=== PATIENT | male | born 1950 | race Caucasian/White ===

== ENCOUNTER 2017-03-24 22:16 | Emergency (ER) | payer OTHER ==
[~2017-03-24] VITALS: Ht 177.8 cm; Wt 106.6 kg
--- NOTE | ~2017-03-24 | EKG ---
[address] [address] ELECTROCARDIOGRAM REPORT Name: AUDIE MYERS [id number] Admission: 03/24/17 Attend Phys: Discharge: 03/25/17 Date of : 52 Report #: [id number] THIS REPORT FOR: //name// [facility] ED Test Date: 2017-03-24 Test Time: 22:36:01 Pat Name: AUDIE MYERS Department: Room: Gender: M Senior Copywriter: NICKY : 1950 Requested By: Shelton Faulkner Order Number: [id number] MD: Nickolas Rios Measurements Intervals [place] Rate: 83 P: 27 [place]: 146 QRS: -6 QRSD: 105 T: 43 QT: 390 QTc: 459 Interpretive Statements Sinus rhythm No significant abnormality No previous ECG available for comparison Electronically Signed On 03-25-2017 17:11:49 CDT by Nickolas Rios [email or web address] <ELECTRONICALLY SIGNED> By: Nickolas Rios MD, [facility] 03/25/17 1711 2236 2236 Nickolas Rios MD, FACC /EPI
[2017-03-24] MEDS ORDERED: NORVASC5 MG PO (22:24)
[2017-03-24] MEDS ORDERED: LOSARTAN POTAS100 MG PO (22:24)
[2017-03-24] MEDS ORDERED: METOPROLOL SUCC50 MG PO (22:24)
[2017-03-24] MEDS ORDERED: HYDROCHLOROTHIA50 MG PO (22:24)
[2017-03-24 22:48] LABS: ABSOLUTE NEUTROPHILS 5.3 thou/uL (1.4-8.2); BASOPHILS 1.2 % (0.0-2.0); EOSINOPHILS 2.4 % (0.0-3.0); HEMATOCRIT 40.6 % (42.0-52.0); HEMOGLOBIN 13.7 gm/dL (14.0-18.0); LYMPHOCYTES 22.9 % (24.0-44.0); MCH 29.3 pg (26.0-34.0); MCHC 33.7 g/dL (28.0-37.0); MONOCYTES 11.1 % (1.0-8.0); PLATELET COUNT 294 thou/uL (150-400); POLYS 62.4 % (36.0-66.0); RBC 4.66 mil/uL (4.50-6.00); RDW 13.4 % (10.5-14.5); WBC 8.5 thou/uL (4.0-11.0)
[2017-03-24 22:49] LABS: MANUAL DIFF NO
[2017-03-24 22:53] LABS: CALCIUM 8.7 mg/dL (8.5-10.1); CREATININE 1.4 mg/dL (0.7-1.3); POTASSIUM 3.3 mmol/L (3.5-5.1)
[2017-03-24] MEDS ORDERED: GLYBURIDE 2.52.5 MG PO (22:56)
[2017-03-25 00:21] VITALS: BP 130/76
== END 2017-03-25 00:22 | disposition home or self-care (01) ==
LOC: ER 22:16
PROVIDERS: Nurse Practitioner
DX: E86.0 Dehydration (principal); T67.5XXA Heat exhaustion, unspecified, initial encounter; F32.9 Major depressive disorder, single episode, unspecified; E11.9 Type 2 diabetes mellitus without complications; I10 Essential (primary) hypertension; H35.30 Unspecified macular degeneration; Z79.4 Long term (current) use of insulin; X58.XXXA Exposure to other specified factors, initial encounter; Y93.89 Activity, other specified; Y92.098 Other place in other non-institutional residence as the place of occurrence of the external cause; Y99.8 Other external cause status

== ENCOUNTER 2018-09-21 11:03 | Emergency (ER) | payer OTHER ==
[~2018-09-21] VITALS: Ht 177.8 cm; Wt 106.6 kg
[~2018-09-21 11:03] MED LIST: GLYBURIDE 2.52.5 MG PO; HYDROCHLOROTHIA50 MG PO; LOSARTAN POTAS100 MG PO; METOPROLOL SUCC50 MG PO; NORVASC5 MG PO
[2018-09-21 11:37] LABS: URINE BILIRUBIN NEGATIVE (Negative); URINE BLOOD NEGATIVE (Negative); URINE CLARITY CLEAR; URINE COLOR YELLOW; URINE GLUCOSE-RANDOM* NEGATIVE (Negative); URINE KETONES NEGATIVE (Negative); URINE LEUKOCYTES-REFLEX NEGATIVE (Negative); URINE NITRITE-REFLEX NEGATIVE (Negative); URINE PROTEIN (DIPSTICK) NEGATIVE (Negative); URINE UROBILINOGEN 0.2 E.U./dl (0.2-1.0)
[2018-09-21] MEDS ORDERED: VITAMIN B125000 MCG PO (11:39)
[2018-09-21] MEDS ORDERED: ASPIR 8181 MG PO (11:40)
[2018-09-21] MEDS ORDERED: UNICOMPLEX M TA1 TA1 PO (11:41)
[2018-09-21] MEDS ORDERED: CALCIUM 600 +1 EAC1 PO (11:41)
[2018-09-21] MEDS ORDERED: FLOMAX0.4 MG PO (11:44)
[2018-09-21 12:16] LABS: ABSOLUTE NEUTROPHILS 7.3 thou/uL (1.4-8.2); BASOPHILS 0.8 % (0.0-2.0); EOSINOPHILS 1.2 % (0.0-3.0); HEMATOCRIT 40.3 % (42.0-52.0); HEMOGLOBIN 13.6 gm/dL (14.0-18.0); LYMPHOCYTES 11.8 % (24.0-44.0); MCH 29.4 pg (26.0-34.0); MCHC 33.8 g/dL (28.0-37.0); MCV 86.9 fL (80.0-100.0); MONOCYTES 8.1 % (1.0-8.0); PLATELET COUNT 267 thou/uL (150-400); POLYS 78.1 % (36.0-66.0); RBC 4.63 mil/uL (4.50-6.00); RDW 13.9 % (10.5-14.5); WBC 9.3 thou/uL (4.0-11.0)
[2018-09-21 12:20] LABS: ANION GAP 9 mmol/L (7-16); BUN 21 mg/dL (7-18); CALCIUM 9.1 mg/dL (8.5-10.1); CHLORIDE 99 mmol/L (98-107); CO2 28 mmol/L (21-32); CREATININE 1.2 mg/dL (0.7-1.3); GLUCOSE 125 mg/dL (74-106); SODIUM 136 mmol/L (136-145)
[2018-09-21 12:29] LABS: ALBUMIN 3.3 g/dL (3.4-5.0); LIPASE 121 U/L (73-393); SGOT 28 U/L (15-37); SGPT 26 U/L (30-65); TOTAL BILIRUBIN 0.8 mg/dL (<0.1-1.0); TOTAL PROTEIN 7.8 g/dL (6.4-8.2); TROPONIN-I <0.06 ng/mL (<0.06)
[2018-09-21] MEDS ORDERED: NORCO 5-325 TA1 EACH PO (14:51)
[2018-09-21] MEDS ORDERED: ZOFRAN4 MG PO (14:51)
[2018-09-21 15:42] VITALS: BP 187/88
--- NOTE | 2018-09-21 16:15 | EKG ---
[address] [address] ELECTROCARDIOGRAM REPORT Name: AUDIE MYERS [facility] [id number] Admission: 09/21/18 Attend Phys: Discharge: 09/21/18 Date of : 52 Report #: [id number] THIS REPORT FOR: //name// [facility] ED Test Date: 2018-09-21 Test Time: 11:52:58 Pat Name: AUDIE MYERS Department: Room: Gender: Director Of Education And Training: belkys : 1950 Requested By: Angélica Campos Order Number: [id number] MD: Nickolas Rios Measurements Intervals [place] Rate: 76 P: 26 [place]: 169 QRS: -8 QRSD: 100 T: 36 QT: 388 QTc: 437 Interpretive Statements Sinus rhythm Normal tracing Compared to ECG 03/24/2017 22:36:01 No significant changes Electronically Signed On 09-21-2018 16:15:15 COMMODITY MANAGEMENT SPECIALIST by Nickolas Rios [email or web address] <ELECTRONICALLY SIGNED> By: Nickolas Rios MD, [facility] 09/21/18 1615 1152 1152 Nickolas Rios MD, FACC /EPI
== END 2018-09-21 15:15 | disposition home or self-care (01) ==
LOC: ER 11:03
PROVIDERS: Student in an Organized Health Care Education/Training Program
DX: N20.0 Calculus of kidney (principal); I10 Essential (primary) hypertension; E11.9 Type 2 diabetes mellitus without complications; F32.9 Major depressive disorder, single episode, unspecified

== ENCOUNTER 2018-10-03 12:04 | Emergency (ER) | payer OTHER ==
[~2018-10-03] VITALS: Ht 177.8 cm; Wt 106.6 kg
[~2018-10-03 12:04] MED LIST changes: +ASPIR 8181 MG PO; +CALCIUM 600 +1 EAC1 PO; +FLOMAX0.4 MG PO; +NORCO 5-325 TA1 EACH PO; +UNICOMPLEX M TA1 TA1 PO; +VITAMIN B125000 MCG PO; +ZOFRAN4 MG PO
[2018-10-03 13:31] LABS: HEMATOCRIT 37.7 % (42.0-52.0); HEMOGLOBIN 12.5 gm/dL (14.0-18.0); MCH 28.9 pg (26.0-34.0); MCHC 33.3 g/dL (28.0-37.0); MCV 86.8 fL (80.0-100.0); PLATELET COUNT 237 thou/uL (150-400); RBC 4.34 mil/uL (4.50-6.00)
[2018-10-03 13:32] LABS: ANION GAP 9 mmol/L (7-16); BUN 23 mg/dL (7-18); CALCIUM 8.6 mg/dL (8.5-10.1); CHLORIDE 97 mmol/L (98-107); CO2 27 mmol/L (21-32); CREATININE 1.9 mg/dL (0.7-1.3); GLUCOSE 159 mg/dL (74-106); POTASSIUM 3.8 mmol/L (3.5-5.1); SODIUM 133 mmol/L (136-145)
[2018-10-03 13:40] LABS: ALBUMIN 2.6 g/dL (3.4-5.0); LIPASE 72 U/L (73-393); SGOT 21 U/L (15-37); SGPT 24 U/L (30-65); TOTAL BILIRUBIN 1.8 mg/dL (<0.1-1.0); TOTAL PROTEIN 7.1 g/dL (6.4-8.2); TROPONIN-I <0.06 ng/mL (<0.06)
[2018-10-03 14:35] LABS: ABSOLUTE NEUTROPHILS 22.6 thou/uL (1.4-8.2)
[2018-10-03 15:01] LABS: URINE BILIRUBIN NEGATIVE (Negative); URINE BLOOD NEGATIVE (Negative); URINE CLARITY CLEAR; URINE COLOR YELLOW; URINE GLUCOSE-RANDOM* NEGATIVE (Negative); URINE KETONES NEGATIVE (Negative); URINE NITRITE-REFLEX NEGATIVE (Negative); URINE PROTEIN (DIPSTICK) NEGATIVE (Negative); URINE SPECIFIC GRAVITY <= 1.005 (1.005-1.035); URINE UROBILINOGEN 0.2 E.U./dl (0.2-1.0)
[2018-10-03 15:02] LABS: URINE LEUKOCYTES-REFLEX 1+ (Negative)
[2018-10-03 15:07] LABS: SQUAMOUS 0-3 Few /LPF (0-3); URINE RBC None Seen /HPF (0-2); URINE WBC-REFLEX 6-15 Few /HPF (0-5)
[2018-10-03 15:08] LABS: BACTERIA-REFLEX 1-9 Few /HPF (None Seen); CASTS None Seen /LPF (None Seen); CRYSTALS None Seen /LPF (None Seen)
[2018-10-03 16:59] VITALS: BP 110/58
--- NOTE | 2018-10-04 08:39 | EKG ---
[address] [address] ELECTROCARDIOGRAM REPORT Name: AUDIE MYERS Room #: [facility]#: [id number] Admission: 10/03/18 Attend Phys: Discharge: 10/03/18 Date of : 52 Report #: [id number] THIS REPORT FOR: //name// [facility] ED Test Date: 2018-10-03 Test Time: 13:06:40 Pat Name: AUDIE MYERS Department: Room: Gender: M Veterinary Medical Officer: as : 1950 Requested By: Niko Mccormick Order Number: [id number] MD: Nickolas Rios Measurements Intervals [place] Rate: 96 P: 25 [place]: 151 QRS: -3 QRSD: 97 T: 41 QT: 342 QTc: 433 Interpretive Statements Sinus rhythm Atrial premature complex Low voltage, precordial leads Baseline wander in lead(s) II,III,aVF Compared to ECG 09/21/2018 11:52:58 Atrial premature complex(es) now present Electronically Signed On 10-04-2018 8:39:20 ELECTRICIAN CRANE MAINTENANCE by Nickolas Rios [email or web address] <ELECTRONICALLY SIGNED> By: Nickolas Rios MD, [facility] 10/04/18 0839 1306 1306 Nickolas iRos MD, [facility] /EPI
== END 2018-10-03 22:54 | disposition short-term general hospital (02) ==
LOC: ER 12:04
PROVIDERS: Emergency Medicine
DX: N20.0 Calculus of kidney (principal); N17.9 Acute kidney failure, unspecified; N13.30 Unspecified hydronephrosis; N12 Tubulo-interstitial nephritis, not specified as acute or chronic; A41.9 Sepsis, unspecified organism; R11.2 Nausea with vomiting, unspecified; I10 Essential (primary) hypertension; E11.9 Type 2 diabetes mellitus without complications; F32.9 Major depressive disorder, single episode, unspecified

== ENCOUNTER 2019-09-16 12:35 | Emergency (ER) | payer OTHER ==
[~2019-09-16] VITALS: Ht 177.8 cm; Wt 106.6 kg
[~2019-09-16 12:35] MED LIST changes: +ESCITALOPRAM OX10 MG PO; +GLYBURIDE 5 MG T5 M1 PO; +KLOR-CON 10 ER10 MEQ PO; +NOVOLOG MI100 UNIT/2 SUBQ; +RABEPRAZOLE SOD20 MG PO; +ZOCOR20 MG PO
[2019-09-16 14:45] LABS: ABSOLUTE NEUTROPHILS 3.2 thou/uL (1.4-8.2); EOSINOPHILS 2.3 % (0.0-3.0); HEMATOCRIT 42.2 % (42.0-52.0); HEMOGLOBIN 13.7 gm/dL (14.0-18.0); LYMPHOCYTES 22.3 % (24.0-44.0); MCHC 32.4 g/dL (28.0-37.0); MCV 89.5 fL (80.0-100.0); MONOCYTES 10.2 % (1.0-8.0); PLATELET COUNT 295 thou/uL (150-400); POLYS 63.2 % (36.0-66.0); RBC 4.71 mil/uL (4.50-6.00); WBC 5.1 thou/uL (4.0-11.0)
[2019-09-16 15:25] LABS: APTT 29.4 Seconds (24.5-32.8); PROTIME 10.4 Seconds (9.3-11.4)
[2019-09-16 15:27] LABS: ALBUMIN 3.5 g/dL (3.4-5.0); CALCIUM 9.2 mg/dL (8.5-10.1); CREATININE 1.1 mg/dL (0.7-1.3); DIRECT BILIRUBIN 0.2 mg/dL (<0.1-0.2); POTASSIUM 3.3 mmol/L (3.5-5.1); TOTAL BILIRUBIN 0.5 mg/dL (<0.1-1.0); TOTAL PROTEIN 8.1 g/dL (6.4-8.2)
[2019-09-16] MEDS ORDERED: POTASSIUM20 PO (16:39)
[2019-09-16] MEDS ORDERED: PROCTOFOAM-HC 110 GM TOP (16:39)
[2019-09-16 18:07] VITALS: BP 132/71
[2019-09-20] MEDS ORDERED: TRAMADOL 50 MG50 MG PO (15:59)
== END 2019-09-16 18:20 | disposition home or self-care (01) ==
LOC: ER 12:35
PROVIDERS: Emergency Medicine; Physician Assistant
DX: R19.7 Diarrhea, unspecified (principal); I10 Essential (primary) hypertension; E11.9 Type 2 diabetes mellitus without complications; F32.9 Major depressive disorder, single episode, unspecified; K21.9 Gastro-esophageal reflux disease without esophagitis; Z87.442 Personal history of urinary calculi; Z89.421 Acquired absence of other right toe(s); Z88.1 Allergy status to other antibiotic agents

== ENCOUNTER → 2019-10-26 | Outpatient (CLI) | payer OTHER ==
[~2019-10-26] VITALS: Ht 177.8 cm; Wt 104.3 kg
[~2019-10-26] MED LIST changes: +POTASSIUM20 PO; +PROCTOFOAM-HC 110 GM TOP; +TRAMADOL 50 MG50 MG PO
--- NOTE | 2019-10-27 16:07 | PATH ---
[facility] [place] [address] PATHOLOGY RPT PROCEDURE Name: DB MYERS Room #: REG [facility]..#: [id number] Admission: 10/26/19 Date of : 52 Discharge: Report #: [id number] Path Case #: [id number] [facility] Accession Number: [id number] . 01 Material submitted: . PART A: colon - RANDOM COLON BIOPSY R/O MICROSCOPIC COLITIS PART B: colon - POLYP AT TRANSVERSE COLON. Modifiers: transverse PART C: rectum - RECTAL POLYPS . 01 Clinical history: . Pre-op diagnosis: Screening, diarrhea Post-op diagnosis: Colon polyp, rectal polyp A: R/O microscopic colitis . 02 Diagnosis: A. Large intestine mucosa, random, endoscopic biopsy: - Mild scattered rare focus of cryptitis, please see comment. - Negative for microscopic colitis. - Negative for dysplasia or malignancy. . B. Polyp, at transverse colon, endoscopic biopsy: - Tubular adenoma. - Negative for high-grade dysplasia. . C. Polyps, rectal polyps, endoscopic biopsy: - Hyperplastic polyps, multiple. - Negative for dysplasia. (IUV:velvet; 10/27/2019) QMS 10/27/2019 1348 Local . 02 Comment: A. Sections of the colonic mucosa designated "random colon" show focal cryptitis, and a moderately cellular lamina propria composed predominantly of lymphocytes and plasma cells and occasional eosinophils. Surface ulceration is not identified. There are no crypt abscesses, granulomas or viral inclusions. The process affects all the fragments with a similar intensity. Given the description, the differential diagnosis includes focal acute self-limited episode of colitis, infectious-type of colitis, medication/drug inducted colitis including bowel preparation, colitis related to diverticulitis, as well as an early evolving inflammatory bowel disease. Please correlate clinically and follow-up as indicated. (IUV:velvet; 10/27/2019) . 02 Electronically signed: . Adriane James MD, Pathologist NPI- [id number] . [address] [place] [address] PATHOLOGY RPT PROCEDURE Name: DB MYERS [facility] [id number] Admission: 10/26/19 Date of : 52 Discharge: Report #: [id number] Path Case #: [id number] Gross description: . A. The specimen is received in formalin, labeled "Db Alessio, random colon biopsy". Received are four segments of pale ac soft tissue ranging in size from 0.3 to 0.8 cm in maximum dimensions. The specimen is submitted entirely in cassette A1. . B. The specimen is received in formalin, labeled "Db Alessio, polyp at transverse colon". Received are two segments of pale ac soft tissue ranging in size from 0.3 to 0.7 cm in maximum dimensions. The specimen is submitted entirely in cassette B1. . C. The specimen is received in formalin, labeled "Db Alessio, rectal polyps". Received are three segments of pale ac soft tissue ranging in size from 0.3 to 0.5 cm in maximum dimensions. The specimen is submitted entirely in cassette C1. (CAA; 10/26/2019) QAC/QAC 10/26/2019 1740 Local . 02 Pathologist provided ICD-10: K62.89, D12.3, K62.1 . 02 CPT . 487193, 937725, 438714 Specimen Comment: A courtesy copy of this report has been sent to [phone], [phone] Specimen Comment: [phone] Specimen Comment: Report sent to / DR FRANK Performed at: [address], [place], [place] [id number] MD Jarrett Melendez MD Phone: [phone] Performed at: [address] [id number] MD Adriane James MD Phone: [phone]
--- NOTE | 2019-10-28 12:59 | P ---
[facility] [place] [place] [address] PROCEDURE REPORT Name: AUDIE MYERS Room #: REG [facility]#: [id number] Admission: 10/26/19 Attend Phys: Leonardo Harrison Discharge: Date of : 52 Report #: [id number] THIS REPORT FOR: cc: Priscila Ortega MD,Leonardo Olivarez MD, MD ~ CC: Leonardo Ortega MD DATE OF SERVICE: 10/26/2019 PROCEDURE PERFORMED: Colonoscopy with biopsies. HISTORY OF PRESENT ILLNESS: The patient is a 69-year-old male, who presents today for routine screening colonoscopy. No family history of colon cancer. He believes his last colonoscopy was in 2003. He does report some mild diarrhea at times. DESCRIPTION OF PROCEDURE: The risks and benefits of the procedure were explained to the patient, those risks including, but not limited to bleeding, perforation, the risk of sedation. He understood these risks and gave informed consent. Sedation was given using propofol per anesthesia. Next, a digital rectal exam was initially performed, which was normal. Next, using a standard Olympus colonoscope, the scope was placed in the patient's anus and advanced under direct vision to the cecum. The overall prep was good. The cecum and ileocecal valve were normal in appearance. The ascending colon was normal. Random biopsies were obtained today to rule out microscopic colitis. In the transverse colon, there was a 4-mm sessile polyp, this was removed with cold forceps, otherwise normal. The descending and sigmoid colon were normal. Two, 3-mm, sessile polyps were noted in the rectum, both removed by cold forceps. On retroflexion, small nonbleeding internal hemorrhoids were noted. The scope was then withdrawn and the procedure terminated. The patient tolerated the procedure well. IMPRESSION: 1. Small colonic polyps. 2. Small internal and external hemorrhoids. 2. Otherwise, normal colonoscopy. RECOMMENDATIONS: 1. Await biopsy results. 2. If polyps are hyperplastic, repeat colonoscopy in 10 years; if adenomatous polyps, repeat in [address] [address] PROCEDURE REPORT Name: AUDIE MYERS Room #: [facility] [id number] Admission: 10/26/19 Attend Phys: Leonardo Harrison Discharge: Date of : 52 Report #: [id number] Thank you for allowing me to participate in his care. <ELECTRONICALLY SIGNED> By: Leonardo Medel MD 10/28/19 1259 1001 1558 Leonardo Medel MD /nt
== END | disposition home or self-care (01) ==
LOC: GI 08:30
DX: R19.7 Diarrhea, unspecified (principal); D12.3 Benign neoplasm of transverse colon; K62.1 Rectal polyp; K62.89 Other specified diseases of anus and rectum; K64.8 Other hemorrhoids; K64.4 Residual hemorrhoidal skin tags; K21.9 Gastro-esophageal reflux disease without esophagitis; I10 Essential (primary) hypertension; E11.9 Type 2 diabetes mellitus without complications; E78.5 Hyperlipidemia, unspecified; F32.9 Major depressive disorder, single episode, unspecified; F41.9 Anxiety disorder, unspecified; Z79.4 Long term (current) use of insulin; Z98.890 Other specified postprocedural states; Z79.899 Other long term (current) drug therapy; Z88.8 Allergy status to other drugs, medicaments and biological substances; Z87.442 Personal history of urinary calculi; Z79.82 Long term (current) use of aspirin

== ENCOUNTER 2020-04-27 17:36 | Emergency (ER) | payer OTHER ==
[~2020-04-27] VITALS: Ht 177.8 cm; Wt 106.6 kg
[2020-04-27 18:23] LABS: ABSOLUTE NEUTROPHILS 13.3 thou/uL (1.4-8.2); BASOPHILS 0.2 % (0.0-2.0); EOSINOPHILS 0.1 % (0.0-3.0); HEMATOCRIT 38.4 % (42.0-52.0); LYMPHOCYTES 6.4 % (24.0-44.0); MCH 30.1 pg (26.0-34.0); MCHC 33.8 g/dL (28.0-37.0); MCV 89.3 fL (80.0-100.0); MONOCYTES 9.1 % (1.0-8.0); PLATELET COUNT 245 thou/uL (150-400); POLYS 84.2 % (36.0-66.0); RDW 13.7 % (10.5-14.5); WBC 15.8 thou/uL (4.0-11.0)
[2020-04-27 18:35] LABS: CALCIUM 8.2 mg/dL (8.5-10.1); CREATININE 1.1 mg/dL (0.7-1.3); POTASSIUM 3.1 mmol/L (3.5-5.1)
[2020-04-27 18:44] LABS: ALBUMIN 2.9 g/dL (3.4-5.0); TOTAL BILIRUBIN 0.7 mg/dL (0.2-1.0); TOTAL PROTEIN 7.6 g/dL (6.4-8.2)
[2020-04-27 20:51] VITALS: BP 142/85
[2020-04-27 21:15] LABS: URINE BILIRUBIN NEGATIVE (Negative); URINE BLOOD TRACE (Negative); URINE CLARITY CLEAR; URINE COLOR YELLOW; URINE GLUCOSE-RANDOM* NEGATIVE (Negative); URINE KETONES NEGATIVE (Negative); URINE LEUKOCYTES-REFLEX NEGATIVE (Negative); URINE NITRITE-REFLEX NEGATIVE (Negative); URINE PROTEIN (DIPSTICK) 1+ (Negative); URINE SPECIFIC GRAVITY 1.025 (1.005-1.035)
[2020-04-27 21:24] LABS: BACTERIA-REFLEX >30 Many /HPF (None Seen); URINE WBC-REFLEX 0-5 Rare /HPF (0-5)
[2020-04-27 21:25] LABS: CRYSTALS None Seen /LPF (None Seen); HYALINE CASTS 0-3 Few /LPF (None Seen); SQUAMOUS None Seen /LPF (0-3); URINE RBC None Seen /HPF (0-2)
[2020-04-27] MEDS ORDERED: FLAGYL500 M1 PO (22:16)
== END 2020-04-27 23:05 | disposition home or self-care (01) ==
LOC: ER 17:36
PROVIDERS: Emergency Medicine
DX: R19.7 Diarrhea, unspecified (principal); D72.829 Elevated white blood cell count, unspecified; I10 Essential (primary) hypertension; E11.9 Type 2 diabetes mellitus without complications; K21.9 Gastro-esophageal reflux disease without esophagitis; Z79.899 Other long term (current) drug therapy; Z88.1 Allergy status to other antibiotic agents

== ENCOUNTER 2020-09-24 16:24 | Emergency (ER) | payer OTHER ==
[~2020-09-24] VITALS: Ht 177.8 cm; Wt 106.6 kg
[~2020-09-24 16:24] MED LIST changes: +FLAGYL500 M1 PO
[2020-09-24] MEDS ORDERED: HYDROCODON-ACE1 EAC7 PO ×3 (20:46→20:56)
[2020-09-24 22:39] VITALS: BP 137/72
--- NOTE | 2020-09-24 23:19 | NUR ---
SISTER, PARRISH, UPDATED ON PATIENT CONDITION, DISCHARGE STATUS AND MEDICATIONS SENT TO [facility]
== END 2020-09-24 22:39 ==
LOC: ER 16:24
DX: S42.391A Other fracture of shaft of right humerus, initial encounter for closed fracture (principal); S09.90XA Unspecified injury of head, initial encounter; M54.2 Cervicalgia; E11.9 Type 2 diabetes mellitus without complications; I10 Essential (primary) hypertension; Z87.442 Personal history of urinary calculi; Z79.899 Other long term (current) drug therapy; Z79.4 Long term (current) use of insulin; Z79.82 Long term (current) use of aspirin; Z88.1 Allergy status to other antibiotic agents; W18.30XA Fall on same level, unspecified, initial encounter; Y93.89 Activity, other specified; Y92.89 Other specified places as the place of occurrence of the external cause; Y99.9 Unspecified external cause status

== ENCOUNTER 2020-10-21 14:21 | Inpatient (IN) | payer OTHER ==
[~2020-10-21] VITALS: Ht 177.8 cm; Wt 104.3 kg
[~2020-10-21 14:21] MED LIST changes: +HYDROCODON-ACE1 EAC7 PO
[2020-10-21 14:25] VITALS: BP 110/78
[2020-10-21 14:42] LABS: HEMATOCRIT 40.2 % (42.0-52.0); HEMOGLOBIN 13.2 gm/dL (14.0-18.0); MCH 29.4 pg (26.0-34.0); MCHC 32.7 g/dL (28.0-37.0); MCV 89.9 fL (80.0-100.0); RBC 4.47 mil/uL (4.50-6.00); RDW 13.8 % (10.5-14.5); WBC 8.5 thou/uL (4.0-11.0)
--- NOTE | 2020-10-21 14:45 | NUR ---
Provider, Yoko, notified that patient endorsed passing thoughts of not wanting to honorio but denies active suicidal thought and also denies plan.
[2020-10-21 14:48] LABS: ANION GAP 14 mmol/L (7-16); BUN 29 mg/dL (7-18); CALCIUM 8.8 mg/dL (8.5-10.1); CHLORIDE 97 mmol/L (98-107); CO2 24 mmol/L (21-32); CREATININE 1.6 mg/dL (0.7-1.3); GLUCOSE 110 mg/dL (74-106); POTASSIUM 3.3 mmol/L (3.5-5.1); SODIUM 135 mmol/L (136-145)
[2020-10-21 14:58] LABS: ALBUMIN 3.3 g/dL (3.4-5.0); SGOT 20 U/L (15-37); SGPT 32 U/L (16-63); TOTAL BILIRUBIN 0.9 mg/dL (0.2-1.0); TOTAL PROTEIN 7.8 g/dL (6.4-8.2); TROPONIN-I <0.06 ng/mL (<0.06)
--- NOTE | 2020-10-21 15:02 | EKG ---
[address] [address] ELECTROCARDIOGRAM REPORT Name: AUDIE MYERS Room #: [facility]..#: [id number] Admission: Attend Phys: Discharge: Date of : 52 Report #: [id number] [facility] ED Test Date: 2020-10-21 Test Time: 14:38:37 Pat Name: AUDIE MYERS Department: Room: Gender: M Roller Operator: RENETTA : 1950 Requested By: Shawnee Jones Order Number: [id number] MD: Rigo Welsh Measurements Intervals [place] Rate: 85 P: -22 [place]: 147 QRS: -11 QRSD: 95 T: 60 QT: 395 QTc: 470 Interpretive Statements Sinus rhythm Inferior infarct, old Compared to ECG 10/03/2018 13:06:40 Myocardial infarct finding now present Atrial premature complex(es) no longer present Electronically Signed On 10-21-2020 15:01:52 DIRECTOR OF RESIDENCE LIFE by Rigo Welsh [email or web address] <ELECTRONICALLY SIGNED> By: Rigo Welsh MD 10/21/20 1501 1438 1438 MD MELISSA Smith
[2020-10-21 17:11] VITALS: BP 128/64
[2020-10-21 17:27] VITALS: BP 121/64
[2020-10-21 17:50] VITALS: BP 148/62
--- NOTE | 2020-10-21 18:48 | NUR ---
NEW ADMIT FOR SYNCOPE WITNESS EVENT. PT ALERT X4, DENIES PAIN, DENIES SOB. RIGHT SHOULDER IMMOBILIZER IN PLACE FROM A UPPER ARM FRACTURE 09/26/20. THORNTON CATHETER PLACED FOR RENTENTIONS-BLADDER SCAN SHOWED GREATER THEN 923 PRIOR TO THORNTON CATHETER PLACED. REPORTS CHRONIC DIARRHEA. BLOOD SUGARS AC/HS. UP WITH AX2, ADMISSION COMPLETED. LEAGALLY BLIND. CALL LIGHT AND PERSONAL ITEMS IN REACH. ORDERS ACKNOWLEDGED AND IMPLIMENTED.
[2020-10-21 19:38] VITALS: BP 139/63
[2020-10-21 19:38] LABS: URINE BILIRUBIN NEGATIVE (Negative); URINE BLOOD NEGATIVE (Negative); URINE CLARITY CLEAR; URINE COLOR YELLOW; URINE GLUCOSE-RANDOM* NEGATIVE (Negative); URINE KETONES NEGATIVE (Negative); URINE LEUKOCYTES-REFLEX NEGATIVE (Negative); URINE NITRITE-REFLEX NEGATIVE (Negative); URINE PROTEIN (DIPSTICK) NEGATIVE (Negative); URINE UROBILINOGEN 0.2 E.U./dl (0.2-1.0)
[2020-10-21 23:51] VITALS: BP 132/54
[2020-10-22 05:07] VITALS: BP 155/53
[2020-10-22 09:22] VITALS: BP 146/60
[2020-10-22 10:58] VITALS: BP 157/68
--- NOTE | 2020-10-22 13:59 | NUR ---
RECEIVED CALL FROM PAIGE WITH [facility] PT ON SERVICE WITH THEM PRIOR TO ADM. FAXED UPDATE RECEIVED [facility].
--- NOTE | 2020-10-22 14:10 | NUR ---
PT UP TO CHAIR.
--- NOTE | 2020-10-22 14:17 | NUR ---
ASSESSMENT: CM REVIEWED CHART AND MET WITH PATIENT AT THE BEDSIDE. PT IS FROM [facility] AND WAS ADMITTED AFTER HAVING A FALL. PT IS WEARING A RIGHT SHOULDER IMMOBILIZER. PT REPORTS THAT HE LIVES AT [facility] AND NORMALLY USES A CANE OR WALKER FOR AMBULATION. 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 HE STATES HE GETS THREE MEALS A DAY. PT REPORTS SOMEONE FROM [facility] CAN TAKE HIM IN HIS WHEELCHAIR TO MEALS BUT DUE TO THE PANDEMIC THEY HAVE ALSO BEEN EATING IN THEIR ROOMS AT TIMES. PT REPORTS THAT HE HAS AN RN WHO ARRANGES HIS MEDICATIONS. PT STATES HE ALSO HAS ACCESS TO A WHEELCHAIR. PT WORKING WITH PT/OT AND RECOMMENDATION FOR POST ACUTE CARE. CM DISCUSSED BENEFITS WITH PATIENT AND PT STATING HE WISHES TO RETURN TO [place] HIS GIRLFRIEND LIVES THERE AND HE REALLY FEELS HE HAS ALL THE SERVICES ALREADY ARRANGED THAT HE WILL NEED (STATING [facility] RN SET UPS HIS MEDS, SOMEONE CAN TAKE HIM IN WHEELCHAIR TO MEALS, AND HE GETS PHYSICAL THERAPY). PT STATING HE DOES NOT WISH TO GO TO SNF AND WANTS TO RETURN TO [facility]. CM FAXED CLINICAL TO [facility]. CM WILL CONTINUE TO FOLLOW TO ASSITS NEEDED.
[2020-10-22 15:36] VITALS: BP 133/51
[2020-10-22 20:45] VITALS: BP 128/70; BP 135/75
--- NOTE | 2020-10-23 04:12 | NUR ---
ASSUMED CARE OF THE PATIENT AT CHANGE OF SHIFT; PT ALERT AND LAYING IN BED; SR ON THE MONITOR; NO SYNCOPAL EVENTS; CONTINUOUS IVF WITHOUT ANY ISSUES AND THORNTON IN PLACE D/T URINARY RETENTION IN ED; 0N RA WITH 02 SATS ABOVE 90 PERCENT; NO C/O PAIN THROUGHOUT THE NOC; PLAN IS FOR PATIENT TO D/C WITH HOME HEALTH TO RESIDENCE TODAY; WILL CONTINUE TO MONITOR AND FOLLOW POC.
[2020-10-23 07:15] VITALS: BP 167/79
--- NOTE | 2020-10-23 10:47 | 2DMMODE ---
[facility] [place] [address] 2 D/M-MODE ECHOCARDIOGRAM Name: AUDIE MYERS Room #: 213-P ADM IN M.R.#: [id number] Admission: 10/21/20 Attend Phys: Scott Gunter MD Discharge: Date of : 52 Report #: [id number] THIS REPORT FOR: cc: Priscila Ortega MD, Stany A. MD Lundgren,Nickolas Hall MD [facility] ~ APPROVED REPORT Study performed: 10/23/2020 09:49:08 EXAM: Comprehensive 2D, Doppler, and color-flow Echocardiogram Patient Location: Bedside Room #: 213 Status: routine BSA: 2.21 HR: 67 bpm BP: 167/79 mmHg Rhythm: NSR Other Information Study Quality: Adequate Technically limited study due to no mobility (broken arm/brace) obesity. Indications Evaluate for hypotension. Syncope. Hx: HLD, HTN, DM. 2D Dimensions IVSd: 12.53 (7-11mm) LVOT Diam: 21.34 (18-24mm) LVDd: 45.37 mm PWd: 14.21 (7-11mm) Ascending Ao: 40.03 (22-36mm) LVDs: 28.16 (25-40mm) Aortic Root: 41.02 mm Volumes Left Atrial Volume (Systole) Single Plane 4CH: 50.68 mL Single Plane 2CH: 70.11 mL LA ESV Index: 31.00 mL/m2 Aortic Valve AoV Peak Kurtis.: 1.04 m/s AO Peak Gr.: 4.35 mmHg LVOT Max P.86 mmHg LVOT Max V: 0.84 m/s [facility] [address] [address] 2 D/M-MODE ECHOCARDIOGRAM Name: AUDIE MYERS Room #: 213-P [facility]#: [id number] Admission: 10/21/20 Attend Phys: Felisha Monk Discharge: Date of : 52 Report #: [id number] [id number] Vmax: 2.90 cm2 Mitral Valve E/A Ratio: 0.8 MV Decel. Time: 296.75 ms MV E Max Kurtis.: 0.71 m/s MV A Kurtis.: 0.90 m/s MV PHT: 86.06 ms IVRT: 83.04 ms Pulmonary Valve PV Peak Kurtis.: 0.89 m/s PV Peak Gr.: 3.15 mmHg Tricuspid Valve RAP Estimate: 5.00 mmHg Left Ventricle The left ventricle is normal size. There is normal LV segmental wall motion. Mild concentric left ventricular hypertrophy. Left ventricular systolic function is normal. LVEF is 60-65%. Mild diastolic dysfunction Right Ventricle The right ventricle is normal size. The right ventricular systolic function is normal. Atria The left atrium size is normal. The right atrium size is normal. Aortic Valve The aortic valve is mildly calcified. Mild aortic insufficiency There is no aortic valvular stenosis. Mitral Valve Moderate mitral annular calcification. There is no mitral valve regurgitation noted. No evidence of mitral valve stenosis. Tricuspid Valve The tricuspid valve is normal in structure. There is no tricuspid valve regurgitation noted. Unable to assess PA pressure. Pulmonic Valve The pulmonary valve is normal in structure. Trace pulmonic regurgitation. [facility] [address] [place] [address] 2 D/M-MODE ECHOCARDIOGRAM Name: AUDIE MYERS Room #: 213-[facility].#: [id number] Admission: 10/21/20 Attend Phys: Felisha Monk Discharge: Date of : 52 Report #: [id number] Great Vessels Aorta and ascending aorta are mildly dilated. (4.1cm). IVC is normal in size and collapses >50% with inspiration. Pericardium There is no pericardial effusion. <Conclusion> Left ventricular systolic function is normal. There is normal LV segmental wall motion. LVEF is 60-65%. Mild diastolic dysfunction The aortic valve is mildly calcified. Mild aortic insufficiency, no stenosis Moderate mitral annular calcification. No mitral valve regurgitation noted. Unable to assess pulmonary artery pressure. There is no pericardial effusion. <ELECTRONICALLY SIGNED> By: Nickolas Rios MD, [facility] 10/23/20 1046 1046 45 Nickolas Rios MD, FACC /INF
--- NOTE | 2020-10-23 11:07 | NUR ---
LEGALLY BLIND. LABILE; TEARFUL, THEN LAUGHING. REPORTS VISUAL HALLUCINATIONS. SR PER TELE. FALL PRECAUTIONS IN PLACE. DR. OWENS HERE, MAY DISCHARGE.
[2020-10-23 11:09] VITALS: BP 167/79
[2020-10-23 11:45] VITALS: BP 150/70
[2020-10-23] MEDS ORDERED: ACETAMINOPHEN325 M1 PO (12:18)
[2020-10-23 12:58] VITALS: BP 167/79
[2020-10-23 13:01] VITALS: BP 167/79
--- NOTE | 2020-10-23 13:50 | NUR ---
ON-GOING ASSESSMENT: CM REVIEWED CHART AND MET WITH PATIENT AT THE BEDSIDE. CM DISCUSSED RECOMMENDATIONS FOR SNF/REHAB ESPECIALLY SINCE HE HAS ON HIS IMMOBILIZER FOR HIS SAFETY. CM DISCUSSED BENEFITS OF SNF. PT CONTINUES TO NOT WANT TO GO TO SNF OR REHAB AND REPORTS HE WISHES TO RETURN TO HIS INDEPENDENT LIVING APT BECAUSE IT IS SMALL AND HE IS FAMILIAR WITH THE SURROUNDINGS AND FEELS HE WILL BE ABLE TO MANAGE WITH THE HELP OF HIS PRIVATE DUTY SERVICES WITH [facility]. JOSEF CONFIRMED WITH CRISTY AT [facility] THAT PT HAS SERVICES THROUGH [facility] THAT TAKE HIM IN A WHEELCHAIR TO ALL MEALS, WELL SOMEONE THAT HELPS ASSIST HIM WITH DRESSING IN THE AM/PM AND MEDICATION MANAGEMENT. PT CONTINUING TO REFUSE TO GO TO SNF AND WANTS TO RETURN TO [place] APT. CM NOTIFIED LATENT PRINT EXAMINER TO PLEASE FAX DISCHARGE ORDERS TO [facility]. CM ALSO NOTIFIED CRISTY AT [facility] THAT HELPS WITH [facility] OF DISCHARGE TODAY. JOSEF SPOKE WITH FABIANA AT [facility] WHO REPORTS THEY CAN ARRANGE WHEELCHAIR TRANSPORTATION TO PICK HIM UP AT 1530. CM NOTIFIED PT AND BEDSIDE RN. PT REPORTS NO FURTHER NEEDS FROM JOSEF.
--- NOTE | 2020-10-23 13:59 | NUR ---
PT DISCHARGING TODAY TO HOME AND RESUME HH WITH [facility] FAXED DC ORDERS/SUMMARY SPOKE WITH PAIGE IN INTAKE SHE RECEIVED ORDERS AND WILL ARRANGE VISITS WITH PT.
--- NOTE | 2020-10-23 14:36 | NUR ---
DISCHARGING BACK TO [facility] WITH HOME HEALTH. SALINE LOCK, TELE DISCONTINUED. FALL PRECAUTIONS IN PLACE.
== END 2020-10-23 15:49 | disposition home health service (06) | DRG 312 ==
LOC: ER 14:21 → EROBS 16:31 → 2N 16:31
PROVIDERS: Nurse Practitioner Family; ADMIT Hospitalist; ATTEND Hospitalist
DX: I95.1 Orthostatic hypotension (principal); N17.0 Acute kidney failure with tubular necrosis; S42.201A Unspecified fracture of upper end of right humerus, initial encounter for closed fracture; K52.9 Noninfective gastroenteritis and colitis, unspecified; F32.9 Major depressive disorder, single episode, unspecified; F41.9 Anxiety disorder, unspecified; H35.30 Unspecified macular degeneration; T50.915A Adverse effect of multiple unspecified drugs, medicaments and biological substances, initial encounter; N13.9 Obstructive and reflux uropathy, unspecified; R33.9 Retention of urine, unspecified; K21.9 Gastro-esophageal reflux disease without esophagitis; H54.3 Unqualified visual loss, both eyes; Z60.2 Problems related to living alone; E87.6 Hypokalemia; I10 Essential (primary) hypertension; E86.0 Dehydration; E11.9 Type 2 diabetes mellitus without complications; E66.01 Morbid (severe) obesity due to excess calories; Z68.33 Body mass index [BMI] 33.0-33.9, adult; Z89.412 Acquired absence of left great toe; Z89.411 Acquired absence of right great toe; Z47.89 Encounter for other orthopedic aftercare; Z79.82 Long term (current) use of aspirin; Z79.899 Other long term (current) drug therapy; W18.39XA Other fall on same level, initial encounter; Y93.89 Activity, other specified; Y92.89 Other specified places as the place of occurrence of the external cause; Y99.8 Other external cause status
CPT/HCPCS: 10081